=== PATIENT | male | born 1965 | race Caucasian/White ===

== ENCOUNTER 2016-09-30 06:57 | Inpatient (IN) | payer OTHER ==
[2016-09-30] VITALS (10 sets, daily range): BP systolic 124–157; BP diastolic 75–90
[~2016-09-30] VITALS: Ht 182.9 cm; Wt 101.6 kg
[~2016-09-30 06:57] MED LIST: ALLO100T PO; CETI-194 PO; FLUT16SP16 NS; MULT-24 PO; OMEG1CAP PO; RIVA10TA PO; TAMS-12 PO
[2016-09-30] MEDS ORDERED: BUPIVACAINE MPF 0.5% W/EPI INJ 30 ML VIAL ONE (08:22)
[2016-09-30] MEDS ORDERED: KETOROLAC TROMETHAMINE INJ 30 MG/ML VIAL ONE (08:22)
[2016-09-30] MEDS ORDERED: BACITRACIN 50000 UNITS/VIAL ONE (08:22)
[2016-09-30] MEDS ORDERED: FENTANYL PF 250MCG/5ML AMPUL ONE (08:31)
[2016-09-30] MEDS ORDERED: SUCCINYLCHOLINE CHLORIDE 20 MG/ML VIAL ONE (08:31)
[2016-09-30] MEDS ORDERED: HYDROMORPHONE INJ 2 MG/ML DISP.SYRIN ONE (10:23)
[2016-09-30] MEDS ORDERED: BUPIVACAINE 0.5 % PF 150 MG/30 ML VIAL ONE (10:42)
[2016-09-30] MEDS ORDERED: FENTANYL PF 100MCG/2ML AMPUL ONE (12:03)
[2016-09-30] MEDS ORDERED: HYDROMORPHONE 1 MG/1 ML DISP.SYRIN ONE (12:16)
[2016-09-30] MEDS ORDERED: SENNOSIDES 8.6 MG TABLET PO PRN (12:30)
[2016-09-30] MEDS ORDERED: ACETAMINOPHEN 325 MG TABLET PO PRN (12:30)
[2016-09-30] MEDS ORDERED: BISACODYL SUPP (10 MG) 10 MG/SUPP.RECT SUPP.RECT RC PRN (12:30)
[2016-09-30] MEDS ORDERED: HYDROCODONE/APAP 5/325MG 1 EACH TABLET PO PRN (12:30)
[2016-09-30] MEDS ORDERED: ONDANSETRON HCL/PF 4 MG/2 ML VIAL IVP PRN (12:30)
[2016-09-30] MEDS ORDERED: DOCUSATE SODIUM 250 MG CAPSULE PO PRN (12:30)
[2016-09-30] MEDS ORDERED: ZOLPIDEM TARTRATE 5 MG TABLET PO PRN (12:30)
--- NOTE | 2016-09-30 12:45 | NUR ---
MS/TAILING MACHINE OPERATOR NOTES ADMITTED THIS 51 Y/O MALE FROM [place], S/P RIGHT KNEE REVISION 09/30/16, IN STABLE CONDITION, UNDER CARE OF DR. DENNISON. NO SOB, NO DISTRESS, WITH OXYGEN 2L/M, VIA N/C, SATURATING WELL 97%, B/P-157/84, P-100, T-98.1, R-20, C/O RIGHT KNEE PAIN 12/19 . PATIENT REFUSED IMAGING ACCOUNT MANAGER PUMP. DR. BARAJAS PAGED FOR PAIN MEDICATION ORDERS. FULL BODY ASSESSMENT DONE. ORIENTED TO THE ROOM, CALL LIGHT SYSTEM, VISITING HOURS, MEEDS MET IN TIMELY MANNER, WITH CALL LIGHT WITHIN EASY REACH. WILL CONTINUE TO MONITOR AND F/U WITH MD FOR PAIN MEDICATION ORDER
[2016-09-30] MEDS ORDERED: CLONIDINE HCL 0.1 MG TABLET PO PRN (13:30)
[2016-09-30] MEDS ORDERED: MENTHOL/CETYLPYRD (CEPACOL) 1 LOZ LOZENGE MM PRN (13:30)
[2016-09-30] MEDS ORDERED: diphenhydrAMINE HCL 25 MG CAPSULE PO PRN (13:30)
[2016-09-30] MEDS ORDERED: MAG HYDROX/AL HYDROX/SIMETH 30 ML UDC PO PRN (14:00)
[2016-09-30] MEDS ORDERED: NALOXONE HCL 0.4 MG/ML AMPUL IV PRN (14:00)
[2016-09-30] MEDS ORDERED: MORPHINE SULFATE INJ 4 MG/ML DISP.SYRIN IM PRN (14:00)
[2016-09-30] MEDS ORDERED: PROMETHAZINE HCL 25 MG/ML AMPUL IM PRN (14:00)
[2016-09-30] MEDS ORDERED: MAGNESIUM HYDROXIDE 30 ML UDC PO PRN (14:00)
[2016-09-30] MEDS: MORPHINE SULFATE INJ 2 MG/ML DISP.SYRIN IV PRN ×2 (14:03→17:09)
[2016-09-30] MEDS ORDERED: ANESTHESIA TRAY IN PYXIS 1 EA TRAY MC ONE (14:10)
[2016-09-30] MEDS ORDERED: IV SET PRIMARY PUMP SET 1 EA INFUS.SET MC ONE ×2 (14:10→14:13)
[2016-09-30] MEDS ORDERED: IV LR 1000 ML 1,000 ML ONE (14:13)
[2016-09-30] MEDS: IV D5/0.45 NACL 1,000 ML IV PRN (14:16)
[2016-09-30] MEDS: HYDROCODONE/APAP 10/325MG 1 EA TABLET PO PRN ×2 (16:34→19:12)
[2016-09-30] MEDS: DOCUSATE SODIUM 100 MG CAPSULE PO SCH (17:08)
[2016-09-30] MEDS: ANCEF 1 GM/50 ML D5W IV SCH ×2 (17:13)
--- NOTE | 2016-09-30 17:30 | NUR ---
RN NOTES PATIENT IS IN THE BED, CPM MACHINE APPLIED ON THE RIGHT FOOT, PHYSICAL THERAPY TOLERATED WELL, PAIN MEDICATION ADMINISTERED PRN, MORPHINE EVERY 3 HOURS, ALTERNATING WITH NORCO. PATIENT IS COMFORTABLE, NO SOB, NO DISTRESS, STABLE, VITAL SIGNS BP-127/87, P-106, R-20, T-98.0, 02-93% RA. NEEDS MET IN TIMELY MANNER, WITH CALL LIGHT WITHIN EASY REACH
--- NOTE | 2016-09-30 19:20 | NUR ---
RN NOTES PAGED DR. BARAJAS INFORMED THAT PATIENT DOESN'T GET RELIEVED FROM CURRENT PAIN. CHARGE NURSE NOTIFIED, ORDERS RECEIVED TO GIVE MORPHINE 4MG IM X 1 @ 20:15, ATIVAN 1MG X1 PO 21:15, AND NORCO 10/325 MG PO X1 22:15, THEN CONTINUE WITH PREVIOUS MEDICATION REGIMEN. NOTED CARRIED OUT, PATIENT INFORMED.
--- NOTE | 2016-09-30 19:30 | NUR ---
RN NOTES CPM MACHINE IN PLACE, RIGHT LEG, ABLE TO TOLERATE 30 DEGREE
--- NOTE | 2016-09-30 19:30 | NUR ---
MSRN CPM IN PLACE. PAIN MGT REVIEWED WITH PATIENT, APPEARS TO UNDERSTAND. CONTINUED
--- NOTE | 2016-09-30 20:15 | NUR ---
MSRN MORPHINE 4MG IM ADMINISTERED ORDERED. CPM TOLERATED AT 30 DEGREES. REMINDED TO CALL STAFF FOR ANY ASSISTANCE OR FURTHER DISCOMFORTS, CALL LIGHT USE REVIEWED WITH PATIENT WELL UNDERSTOOD. TO CONTINUE.
[2016-09-30] MEDS ORDERED: MORPHINE SULFATE INJ 4 MG/ML DISP.SYRIN IM ONE (21:00)
[2016-09-30] MEDS ORDERED: LORAZEPAM 1 MG TABLET PO ONE (21:15)
[2016-09-30] MEDS: TAMSULOSIN 0.4 MG CAP.SR.24H PO SCH (21:25)
[2016-09-30] MEDS: PANTOPRAZOLE 40 MG TABLET.DR PO SCH (21:25)
[2016-09-30] MEDS: LORAZEPAM 1 MG TABLET PO SCH (21:27)
--- NOTE | 2016-09-30 21:38 | NUR ---
MSRN ATIVAN 1 MG PO ADMINISTERED ORDERED. OTHER DUE MEDS GIVEN. CPM OFF FOR NOW. WILL RESUME IN 2 HRS. VOIDING WELL.
[2016-09-30] MEDS ORDERED: HYDROCODONE/APAP 10/325MG 1 EA TABLET PO ONE (22:15)
--- NOTE | 2016-09-30 22:20 | NUR ---
MSRN INCENTIVE SPIROMETRY INSTRUCTIONS GIVEN, ENCOURAGED USE Q HOUR WHILE AWAKE. ABLE TO REACH UP TO 2500 ON IS INITIALLY. ALL NEEDS ATTENDED.
--- NOTE | 2016-09-30 22:25 | NUR ---
MSRN PLACED CALL TO DR. YUAN, AWARE OF CONSULTATION FOR MEDICAL MGT.
--- NOTE | 2016-09-30 22:50 | NUR ---
MSRN FULLY AWAKE STILL, NORCO 1 TAB GIVEN. STATED HELPING HIS PAIN. KWABENA REYES AT BEDSIDE.
--- NOTE | 2016-09-30 23:43 | NUR ---
MSRN CPM IN PLACE, SAME SETTINGS.
[2016-10-01] MEDS ORDERED: SECONDARY IV SET 1 EA INFUS.SET MC ONE (01:23)
[2016-10-01] MEDS: ANCEF 1 GM/50 ML D5W IV SCH ×2 (01:36)
[2016-10-01] MEDS: IV D5/0.45 NACL 1,000 ML IV PRN ×3 (01:42→22:10)
[2016-10-01] MEDS: MORPHINE SULFATE INJ 4 MG/ML DISP.SYRIN IM PRN ×7 (01:42→22:11)
--- NOTE | 2016-10-01 01:45 | NUR ---
MSRN CPM OFF FOR NOW. PAIN SCALE 8 PER PATIENT REQUESTED PAINSHOT. MORPHINE 4MG IM ADMINISTERED ORDERED.
--- NOTE | 2016-10-01 04:15 | NUR ---
MSRN AWAKENED, WENT TO RESTROOM WITH FWW. STATED HAD BM. REFUSED TO USE IMMOBILIZER. STATED HE WILL BE "OK".
--- NOTE | 2016-10-01 04:39 | NUR ---
MSRN VERBALIZES RIGHT KNEE POST OP PAIN, MORPHINE 4MG IM ADMINISTERED, FOR SCALE OF 8/10/ BEDREST INSTRUCTED.
--- NOTE | 2016-10-01 06:35 | NUR ---
MSRN RESTING QUIETLY, PAIN TOLERABLE. NO NEEDS FOR NOW.
[2016-10-01 07:13] LABS: HEMATOCRIT 40 % (39-51); HEMOGLOBIN 13.7 g/dL (13.5-17.5); MEAN CORPUSCULAR HEMOGLOBIN 32 PG (26.0-33.0); MEAN CORPUSCULAR HGB CONC 34 g/dl (31.0-36.0); MEAN CORPUSCULAR VOLUME 94 fL (80-96); PLATELET COUNT (AUTO) 182 /CMM (150-450); RED BLOOD CELL COUNT(AUTO) 4.29 MIL/uL (4.5-6.0); WHITE BLOOD COUNT (AUTO) 12.2 K/uL (4.3-11.0)
--- NOTE | 2016-10-01 07:35 | NUR ---
RN MS OPENING NOTES RECEIVED PATIENT IN BED, AWAKE, HEAD OF BED ELEVATED. NO SOB OR DISTRESS NOTED, IV IS INTACT AND PATENT. PATIENT'S CALL LIGHT IS WITHIN PATIENT REACH. WILL CONTINUE TO MONITOR ACCORDINGLY.
[2016-10-01 08:00] VITALS: BP 127/78
[2016-10-01] MEDS: ALLOPURINOL 100 MG TABLET PO SCH (08:19)
[2016-10-01] MEDS: ASPIRIN 325 MG TABLET PO SCH (08:20)
[2016-10-01] MEDS: DOCUSATE SODIUM 100 MG CAPSULE PO SCH ×2 (08:20→17:03)
--- NOTE | 2016-10-01 09:51 | NUR ---
PT SEEN BY FOR PAIN MANAGEMENT.
--- NOTE | 2016-10-01 10:17 | NUR ---
PT SEEN BY DR. DICKERSON, POC DISCUSSED WITH PT AND HIS AT BEDSIDE, NEW ORDERS RECEIVED.
[2016-10-01] MEDS: HYDROCODONE/APAP 10/325MG 1 EA TABLET PO PRN ×4 (10:53→20:08)
[2016-10-01] MEDS ORDERED: MORPHINE SULFATE INJ 4 MG/ML DISP.SYRIN IVP PRN (11:00)
--- NOTE | 2016-10-01 13:37 | NUR ---
Social service consult requested by Med/Surg NIGEL Steele for postsurgery. Per H&P report by Dr. Krishnamurthy, patient is a 51-year old male with a PMHx of asthma, gout, osteoarthritis and right knee arthroplasty. Patient was lying in bed and reported that he was doing well. Patient was admitted to [facility] for rehabilitation and postoperative care. SW met with patient at bedside. He was alert and oriented x4. He presented in a euthymic mood and his affect was congruent. His thought process was coherent and goal oriented. Patient reported that he had just seen Dr. Paez and understood his care plan. He stated that everything was fine and he was not in need of any support or resources. Patient reported no history of mental illness or substance abuse. Patient's home address: [address] [place] [address]; [place] [address].
[2016-10-01 16:00] VITALS: BP 145/82
--- NOTE | 2016-10-01 19:20 | NUR ---
MS RN OPENING NOTES: RECEIVED PT IN BED AWAKE AND A/OX4. NO SIGNS OR SYMPTOMS OF DISTRESS AT THIS TIME. WAS ENDORSED FROM AM NURSE THAT PT WANTS HIS PAIN MEDS Q3HRS. PT HAS IV ON L HAND #20G AND IS PATNET AND INTACT. FLUIDS ARE INFUSING AT D5 1/2 NS 1,000ML AT 125ML/HR. WILL CONTINUE TO MONITOR PT.
--- NOTE | 2016-10-01 19:23 | NUR ---
RN CLOSING NOTES ALL NEEDS PROVIDED, ATTENDED AND ANTICIPATED. KEPT PATIENT CLEAN AND COMFORTABLE IN BED, CALL LIGHT WITHIN PATIENT REACH, WILL CONTINUE TO MONITOR ACCORDINGLY. ENDORSED TO NEXT SHIFT RN TO CONTINUE CARE.
[2016-10-01 20:00] VITALS: BP 103/67
--- NOTE | 2016-10-01 20:00 | NUR ---
MS RN NOTES: PT STARTED USING CPM MACHINE. PT WANTS IT FOR 2 HOURS. WILL CONTINUE TO MONITOR PT.
--- NOTE | 2016-10-01 20:08 | NUR ---
MS RN NOTES: PT REQUESTED FOR NORCO 10-325MG PO. WILL CONTINUE TO MONITOR PT.
[2016-10-01] MEDS: TAMSULOSIN 0.4 MG CAP.SR.24H PO SCH (21:02)
[2016-10-01] MEDS: PANTOPRAZOLE 40 MG TABLET.DR PO SCH (21:02)
[2016-10-01] MEDS: LORAZEPAM 1 MG TABLET PO SCH (21:03)
--- NOTE | 2016-10-01 22:11 | NUR ---
MS RN NOTES: PT REQUESTED FOR MORPHINE 4MG IM. WILL CONTINUE TO MONITOR PT.
[2016-10-02] MEDS: HYDROCODONE/APAP 10/325MG 1 EA TABLET PO PRN ×5 (01:50→15:56)
--- NOTE | 2016-10-02 01:50 | NUR ---
MS RN NOTES: PT REQUESTED FOR NORCO 10-325MG PO.
[2016-10-02] MEDS: IV D5/0.45 NACL 1,000 ML IV PRN ×2 (05:50→16:12)
[2016-10-02] MEDS: MORPHINE SULFATE INJ 4 MG/ML DISP.SYRIN IM PRN ×4 (06:08→15:16)
--- NOTE | 2016-10-02 06:08 | NUR ---
MS RN NOTES: PT REQUESTED FOR MORPHINE 4MG IM. WILL CONTINUE TO MONITOR PT.
--- NOTE | 2016-10-02 07:21 | NUR ---
MS RN NOTES: PT RECEIVED NORCO 10/325MG PO. SPOKE WITH DR. BARAJAS PRIOR AND WANTED PT TO RECEIVE NORCO BEFORE END OF MY SHIFT. WILL ENDORSE TO AM NURSE FOR PARISH.
--- NOTE | 2016-10-02 07:25 | NUR ---
MS RN CLOSING NOTES: PT JUST GOT BACK TO BED FROM USING THE BATHROOM AND BRUSHING TEETH. PT IS A/OX4. PT IS WATCHING TELEVISION. ALL NEEDS WERE ATTENDED FOR. PT KEPT CLEAN, DRY, AND COMFORTABLE. PT MADE PAIN NEEDS KNOWN. CALL LIGHT WITHIN PT'S REACH. BED KEPT IN LOCKED, LOWEST POSITION, AND SIDE RAILS X 2 UP. NO SIGNS OR SYMPTOMS OF DISTRESS NOTED AT THIS TIME. ENDORSED TO AM NURSE FOR CONTINUITY OF CARE.
--- NOTE | 2016-10-02 07:25 | NUR ---
MS/RN AM NOTES RECEIVED PATIENT IN BED, AWAKE, ALERT, NO SOB, NO DISTRESS NOTED, BREATHING EVEN, UNLABORED. C/O RIGHT KNEE PAIN 11/18, NORCO ADMINISTERED BY SUBPOENA SERVER NURSE AT 07:21, MORPHINE 4MG IM 06: 08, WILL ASSESS BACK FOR EFFECTIVENESS. IV PERIPHERAL LINE ON LEFT HAND INTACT, PATENT, WITH 1/2 N/S WITH D5W, 125 CC/H. PATIENT IS COMFORTABLE, NEEDS MET IN TIMELY MANNER, BED IN LOW POSITION, 2 R UP FOR SAFETY, WITH CALL LIGHT WITHIN EASY REACH. WILL CONTINUE TO MONITOR ACCORDINGLY FOR PARISH
[2016-10-02 08:13] VITALS: BP 133/79
[2016-10-02] MEDS: ASPIRIN 325 MG TABLET PO SCH (08:40)
[2016-10-02] MEDS: ALLOPURINOL 100 MG TABLET PO SCH (08:40)
[2016-10-02] MEDS: DOCUSATE SODIUM 100 MG CAPSULE PO SCH (08:40)
[2016-10-02] MEDS ORDERED: Aspirin PO (09:17)
[2016-10-02] MEDS ORDERED: HYDR-3658 PO (09:25)
--- NOTE | 2016-10-02 09:25 | NUR ---
RN NOTES MORPHINE ADMINISTERED 4MG IM FOR 810 RIGHT KNEE PAIN, ON RIGHT DELTOID PER PATIENT'S REQUEST, CPM MACHINE APPLIED, SETTING 50 DEGREE, TOLERATING WELL, WILL CONTINUE TO MONITOR
[2016-10-02 10:00] VITALS: BP 133/79
[2016-10-02] MEDS ORDERED: IV SET PRIMARY PUMP SET 1 EA INFUS.SET MC ONE (14:59)
[2016-10-02 16:03] VITALS: BP 125/77
[2016-10-02] MEDS ORDERED: HYDROCODONE/APAP 10/325MG 1 EA TABLET PO ONE (17:30)
--- NOTE | 2016-10-02 18:00 | NUR ---
VOCATIONAL CHILDCARE TEACHER NOTES DISCHARGED PATIENT HOME WITH FRIEND, IN STABLE CONDITION. YOCASTA VISITED, EXAMINED, SURGICAL DRESSING CHANGED, TOLERATED WELL, PICTURE TAKEN. PAIN MEDICATION GIVEN NORCO 10/325 MG 1 TAB X ONE POST PROCEDURE BEFORE DISCHARGE, PER MD ORDER. DISCHARGE CARE INSTRUCTION GIVEN, ENCOURAGED TO F/U WITH ORTHO SURGEON WITHIN A WEEK. ASSISTED TO THE CAR VIA W/C WITH ALL BELONGINGS AND VALUABLES.
== END 2016-10-02 17:45 | disposition home health service (06) | DRG 468 ==
LOC: DS 06:57 → MED 13:03
PROVIDERS: ADMIT Specialist; ATTEND Nurse Practitioner Acute Care
PROC: 0SRV0J9 Replacement of Right Knee Joint, Tibial Surface with Synthetic Substitute, Cemented, Open Approach (ICD-10-PCS; principal; 2016-09-30 10:05)
PROC: 0KN Muscles, Release (ICD-10-PCS; principal; 2016-09-30 10:05)
PROC: 0SPV0JZ Removal of Synthetic Substitute from Right Knee Joint, Tibial Surface, Open Approach (ICD-10-PCS; principal; 2016-09-30 10:05)
DX: T84.022A Instability of internal right knee prosthesis, initial encounter (principal); D72.829 Elevated white blood cell count, unspecified; E66.9 Obesity, unspecified; J45.909 Unspecified asthma, uncomplicated; M10.9 Gout, unspecified; M19.90 Unspecified osteoarthritis, unspecified site; Y83.9 Surgical procedure, unspecified as the cause of abnormal reaction of the patient, or of later complication, without mention of misadventure at the time of the procedure; Y79.2 Prosthetic and other implants, materials and accessory orthopedic devices associated with adverse incidents; T84.82XA Fibrosis due to internal orthopedic prosthetic devices, implants and grafts, initial encounter; Y92.009 Unspecified place in unspecified non-institutional (private) residence as the place of occurrence of the external cause; Z68.30 Body mass index [BMI] 30.0-30.9, adult
CPT/HCPCS: 36415; 85027-TC; 86850-TC; 86921-TC; 88300-TC; 88305-TC; 88311-TC; 97110-TC; 97116-TC; 97530-TC; 97760-TC; A4217; A6253; A6402; C1713; J0330; J0690; J1100; J1170; J1885; J2001; J2270; J2704; J3010; J3490; J7060; J7120